=== PATIENT | female | born 1980 | race Caucasian/White ===

== ENCOUNTER → 2016-10-27 | Outpatient (CLI) | payer OTHER ==
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
== END | disposition home or self-care (01) ==
LOC: RADCTMAIN 16:04
PROVIDERS: ATTEND Emergency Medicine
DX: S00.83XA Contusion of other part of head, initial encounter (principal)
CPT/HCPCS: 70450; 70486

== ENCOUNTER → 2016-11-09 | Outpatient (CLI) | payer OTHER ==
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
== END | disposition home or self-care (01) ==
LOC: RADCTMAIN 10:44
PROVIDERS: ATTEND Emergency Medicine
DX: S00.83XA Contusion of other part of head, initial encounter (principal)
CPT/HCPCS: 70450

== ENCOUNTER → 2017-03-11 | Outpatient (CLI) | payer BC ==
[2017-03-11 14:51] LABS: Basophils % (A) 1 %; CH 29.4; Eosinophils % (A) 1 %; HGB 13.3 gm/dL (11.4-16.0); Luc # (Auto) 0.12; Luc % (Auto) 3; Lymphocytes # (A) 1.4 k/uL (1.0-4.8); Lymphocytes % (A) 29 %; MCH 29.6 pg (25.0-35.0); MCHC 33.2 g/dL (31.0-37.0); MCV 89.4 fL (80.0-100.0); Mean Platelet Volume 8.1; Monocytes # (A) 0.3 k/uL (0-1.0); Monocytes % (A) 6 %; Neutrophils # (A) 3.1 k/uL (1.3-7.7); Neutrophils % (A) 61 %; RBC 4.47 m/uL (3.80-5.40); WBC (Perox) 4.92
== END | disposition home or self-care (01) ==
LOC: LABWHC1 14:02
PROVIDERS: ATTEND Obstetrics & Gynecology
DX: Z01.812 Encounter for preprocedural laboratory examination (principal)
CPT/HCPCS: 36415; 85025

== ENCOUNTER 2017-03-22 05:50 | Day surgery (SDC) | payer BC, OTHER ==
[2017-03-14 15:54] VITALS: BMI 19.2
--- NOTE | 2017-03-21 07:33 | P.HPOB ---
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 Most recently patient had a colposcopy done that showed MESFIN-1 of the ectocervix however her Pap smear did show high-grade changes. And due to this discrepancy going to proceed with LEEP excision of this area. Patient also has an IUD with known retained strings and therefore is going to have IUD removed at this time as well. Review of Systems Constitutional: Denies chills, Denies fever Cardiovascular: Denies chest pain, Denies shortness of breath Respiratory: Denies cough Gastrointestinal: Denies abdominal pain, Denies diarrhea, Denies nausea, Denies vomiting Genitourinary: Reports as per HPI Menstruation: Reports period normal Past Medical History Additional Past Medical History / Comment(s): HX migraine, kidney stones History of Any Multi-Drug Resistant Organisms: None Reported Past Surgical History: Adenoidectomy, Ear Surgery Additional Past Surgical History / Comment(s): d&c, HAS HAD TUBES IN EARS X4 Past Anesthesia/Blood Transfusion Reactions: No Reported Reaction Past Psychological History: No Psychological Hx Reported Smoking Status: Never smoker Past Alcohol Use History: None Reported Past Drug Use History: None Reported - Past Family History Mother Family Medical History: No Reported History Medications and Allergies Allergies Allergy/AdvReac Type Severity Reaction Status Date / Time No Known Allergies Allergy Verified 03/14/17 15:51 Exam - OBG Physical Exam Abdomen: bowel sounds normal, no diffuse tenderness, no bruit present, no guarding noted, no hepatomegaly, no splenomegaly, no mass Vulva: both: normal Vagina: normal moisture, no discharge Cervix: no lesion, no discharge Uterus: normal size, normal contour Adnexa: both: normal Results Colposcopy performed on January 18 showed MESFIN-1 of the ectocervix with negative endocervical curettings. 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 Patient also has known retention of the IUD strings with IUD in the proper position. Due to the discrepancy of the Pap smear, plan is colposcopy with LEEP excision of the ectocervix and endocervix and IUD removal. Patient does understand the surgery and risks including risks of infection, bleeding, possible cervical incompetence if any future pregnancies. All the patient's questions are answered and a written consent is obtained. Status: Acute (2) IUD strings lost Status: Acute
[~2017-03-22 05:50] MED LIST: DEXAMETHASONE SOD PHOSPHATE 10 MG/ML 1 ML VIAL IV ONE; HYDROmorphone 1 MG/ML 1 ML SYRINGE IVP PRN; LACTATED RINGERS 1,000 ML IV SCH; MIDAZOLAM 2 MG/2 ML VIAL IV PRN; ONDANSETRON 4 MG/2 ML VIAL IVP ONE; Pre Op ABX Message 1 EACH MISC MISCELLANE ONE
[2017-03-22 06:32] VITALS: RESP 16; TEMP 97.8
[2017-03-22] MEDS ORDERED: LIDOCAINE 1% 20 ML VIAL (10MG/ML) FOR IV START INTRADERMA ONE (06:38)
[2017-03-22] MEDS ORDERED: SCOPOLAMINE 1.5MG/72HR PATCH TRANSDERM ONE (07:03)
[2017-03-22] MEDS ORDERED: PROPOFOL 10 MG/ML 20 ML VIAL IV ONE (07:11)
[2017-03-22] MEDS ORDERED: LIDOCAINE 1% INJ 10MG/ML (20 ML MDV) ONE (07:11)
[2017-03-22] MEDS ORDERED: KETOROLAC 30 MG/ML 1 ML VIAL ONE (07:11)
[2017-03-22] MEDS ORDERED: fentaNYL (PF) 50 MCG/ML 2 ML AMP ONE (07:11)
[2017-03-22] MEDS ORDERED: MIDAZOLAM 2 MG/2 ML VIAL ONE (07:11)
[2017-03-22] MEDS ORDERED: IODINE/POTASS IOD (LUGOLS) BTL TOPICAL ONE (07:43)
[2017-03-22] MEDS ORDERED: FERRIC SUBSULFATE (MONSELS) JAR TOPICAL ONE (07:43)
--- NOTE | 2017-03-22 07:45 | P.OP ---
Date of Procedure: 03/22/17 Preoperative Diagnosis: #1: High-grade cervical dysplasia. #2: Retained IUD Postoperative Diagnosis: Same Procedure(s) Performed: #1: Removal of IUD. #2: Colposcopy #3: LEEP excision of the ectocervix and endocervix. Implants: Anesthesia: MAC Surgeon: Elijah Seay Estimated Blood Loss (ml): 15 Urine output (ml): 5 Pathology: other (Ectocervix and endocervix.) Condition: stable Disposition: PACU Indications for Procedure: Please see dictated H&P for intimate details of this patient's admission. Brief summary this is a pleasant 36-year-old 3 para 2 female whose had a discrepant Pap smear showing high-grade dysplasia and a colposcopy showing low -grade changes. Patient also has known lost IUD strings. Patient now presents for LEEP excision of the cervix due to high-grade Pap smear and removal of her IUD. Patient does understand the surgery and risks including risks of infection , bleeding, possible cervical incompetence if she were to become in the future. All the patient's questions were answered written consent is obtained. Operative Findings: This patient had a ParaGard IUD in place. The cervix showed some mild acetowhite changes as demarcated in the office on the ectocervix. Description of Procedure: This patient is taken to the operating room where she is laid in the supine position. She subsequently undergoes general mask anesthesia without incident. With an adequate level of anesthesia she's placed in dorsal lithotomy position. She has a vaginal perineal prep and drape. Examination under anesthesia shows a retroverted uterus of normal size. I first drain the bladder for 5 mL of clear urine. Weighted speculum was placed in the posterior vagina and the Allis clamp was used to grab the anterior lip of the cervix. Using the Halle's I gently probed the endocervix unable to grab the IUD strings and remove the ParaGard IUD intact. With this done the Allis clamp and weighted speculum removed. The laser speculum was then placed in the vagina and the cervix is then visualized. Colposcopy is performed at this time. The large LEEP loop was then used to excise the entire ectocervix with transformation zone. This is done at a 6070 cutting cautery setting. Another pass is made of the small loop of the endocervix. These tissue pieces are sent off separately. Cautery is then used to assure hemostasis of the endocervical and ectocervical bed. The ectocervical margin is cauterized as well. With this completed Monsel solution is placed for added hemostasis. Excellent hemostasis is noted. This done the procedure is then terminated. The speculum is removed. All counts are correct 3. Patient is awakened from anesthesia and taken recovery room satisfactory condition. There are no complications.
[2017-03-22] MEDS ORDERED: LACTATED RINGERS 1,000 ML IV ONE (08:00)
[2017-03-22 09:30] VITALS: BP 104/69; PULSE 58
== END 2017-03-22 10:24 | disposition home or self-care (01) ==
LOC: OR 05:50
PROVIDERS: ATTEND Obstetrics & Gynecology
DX: R87.613 High grade squamous intraepithelial lesion on cytologic smear of cervix (HGSIL) (principal); N87.1 Moderate cervical dysplasia; Z30.432 Encounter for removal of intrauterine contraceptive device; Z79.899 Other long term (current) drug therapy
CPT/HCPCS: 58301; 57460; 81025; 88305; 88307; J2250; J2405; J2001; J3010; J1885; J1170; J2704

== ENCOUNTER 2018-05-23 08:20 | Emergency (ER) | payer BC ==
[2018-05-23 08:31] VITALS: RESP 18
[2018-05-23] MEDS ORDERED: SODIUM CHLORIDE 0.9% 500 ML 500 ML IV STA (08:41)
[2018-05-23] MEDS ORDERED: KETOROLAC 30 MG/ML 1 ML VIAL IVP STA (08:41)
[2018-05-23] MEDS ORDERED: SODIUM CHLORIDE 0.9% 1,000 ML IV STA (08:41)
--- NOTE | 2018-05-23 08:45 | ED ---
Abdominal Pain HPI - General Chief Complaint: Abdominal Pain Stated Complaint: Abdominal pain Time Seen by Provider: 05/23/18 08:35 Source: patient, RN notes reviewed Mode of arrival: wheelchair Limitations: no limitations - History of Present Illness Initial Comments: This is a 37-year-old female who presents the onset of severe 10/10 achy mid upper abdominal pain at about 7:40 AM this morning she states last night and this morning she got she felt fine this is a sudden onset and currently is about 8 a half/10 severity with some nausea but no overt vomiting fevers chills sweats no dysuria hematuria or vaginal discharges. She does have a history kidney stones which was but states this feels much different. It does get worse with certain movements and deep breathing. It starts she is aware no bad food no exposure to anyone with a similar presentation. No other modifying factors MD Complaint: abdominal pain - Related Data Home Medications Medication Instructions Recorded Confirmed Blisovi Fe 1.5/30 1 tab PO HS 05/23/18 05/23/18 Ibuprofen [Motrin Ib] 400 mg PO Q6H PRN 05/23/18 05/23/18 Previous Rx's Medication Instructions Recorded Dicyclomine [Bentyl] 10 mg PO TID #10 capsule 05/23/18 Allergies Allergy/AdvReac Type Severity Reaction Status Date / Time No Known Allergies Allergy Verified 05/23/18 08:54 Review of Systems ROS Statement: Those systems with pertinent positive or pertinent negative responses have been documented in the HPI. ROS Other: All systems not noted in ROS Statement are negative. Past Medical History Additional Past Medical History / Comment(s): migraine History of Any Multi-Drug Resistant Organisms: None Reported Past Surgical History: Ear Surgery Additional Past Surgical History / Comment(s): d&c colonoscopy Past Anesthesia/Blood Transfusion Reactions: No Reported Reaction Past Psychological History: No Psychological Hx Reported Smoking Status: Never smoker Past Alcohol Use History: Occasional Past Drug Use History: Marijuana - Past Family History Mother Family Medical History: No Reported History General Exam - General Exam Comments Initial Comments: This is a well-developed well-nourished awake alert oriented 3 female Limitations: no limitations General appearance: alert, anxious, in distress Head exam: Present: atraumatic, normocephalic, normal inspection Eye exam: Present: normal appearance, PERRL, EOMI. Absent: scleral icterus, conjunctival injection, periorbital swelling ENT exam: Present: normal exam, mucous membranes moist Neck exam: Present: normal inspection. Absent: tenderness, meningismus, lymphadenopathy Respiratory exam: Present: normal lung sounds bilaterally. Absent: respiratory distress, wheezes, rales, rhonchi, stridor Cardiovascular Exam: Present: regular rate, normal rhythm, normal heart sounds. Absent: systolic murmur, diastolic murmur, rubs, gallop, clicks GI/Abdominal exam: Present: soft, tenderness (Some epigastric and left upper quadrant tenderness palpation no guarding rebound masses or bruits), normal bowel sounds. Absent: distended, guarding, rebound, rigid Rectal exam: Present: deferred Extremities exam: Present: normal inspection, full ROM, normal capillary refill. Absent: tenderness, pedal edema, joint swelling, calf tenderness Back exam: Present: normal inspection Neurological exam: Present: alert, oriented X3, CN II-XII intact Psychiatric exam: Present: normal affect, normal mood Skin exam: Present: warm, dry, intact, normal color. Absent: rash Course Vital Signs 05/23/18 08:29 Temperature 98.2 F Pulse Rate 75 Respiratory 18 Rate Blood Pressure 133/83 O2 Sat by Pulse 100 Oximetry Medical Decision Making - Medical Decision Making Patient is currently pain-free I did discuss the findings with her and her was present. The presentation consistent with spastic colon patient does have a small amount of blood in the urine this may represent either her period beginning to start or the kidney stone on the left which she is aware of. The symptoms are not consistent with her prior episodes of kidney stones however - Lab Data Result diagrams: 05/23/18 09:00 05/23/18 09:00 Lab Results 05/23/18 05/23/18 05/23/18 Range/Units 08:51 08:51 09:00 WBC (3.8-10.6) k/uL RBC (3.80-5.40) m/uL Hgb (11.4-16.0) gm/dL Hct (34.0-46.0) % MCV (80.0-100.0) fL MCH (25.0-35.0) pg MCHC (31.0-37.0) g/dL RDW (11.5-15.5) % Plt Count (150-450) k/uL Neutrophils % % Lymphocytes % % Monocytes % % Eosinophils % % Basophils % % Neutrophils # (1.3-7.7) k/uL Lymphocytes # (1.0-4.8) k/uL Monocytes # (0-1.0) k/uL Eosinophils # (0-0.7) k/uL Basophils # (0-0.2) k/uL Sodium 138 (137-145) mmol/L Potassium 4.2 (3.5-5.1) mmol/L Chloride 111 H (98-107) mmol/L Carbon Dioxide 18 L (22-30) mmol/L Anion Gap 9 mmol/L BUN 14 (7-17) mg/dL Creatinine 0.80 (0.52-1.04) mg/dL Est GFR (CKD-EPI)AfAm >90 (>60 ml/min/1.73 sqM) Est GFR (CKD-EPI)NonAf >90 (>60 ml/min/1.73 sqM) Glucose 95 (74-99) mg/dL Calcium 9.0 (8.4-10.2) mg/dL Magnesium 1.7 (1.6-2.3) mg/dL Total Bilirubin 0.3 (0.2-1.3) mg/dL AST 14 (14-36) U/L ALT 15 (9-52) U/L Alkaline Phosphatase 30 L (38-126) U/L Total Creatine Kinase (30-135) U/L CK-MB (CK-2) (0.0-2.4) ng/mL CK-MB (CK-2) Rel Index Troponin I (0.000-0.034) ng/mL Total Protein 7.0 (6.3-8.2) g/dL Albumin 4.0 (3.5-5.0) g/dL Amylase 95 (30-110) U/L Lipase 211 (23-300) U/L Urine Color Yellow Urine Appearance Clear (Clear) Urine pH 6.5 (5.0-8.0) Ur Specific [place] 1.021 (1.001-1.035) Urine Protein Negative (Negative) Urine Glucose (UA) Negative (Negative) Urine Ketones Negative (Negative) Urine Blood Moderate H (Negative) Urine Nitrite Negative (Negative) Urine Bilirubin Negative (Negative) Urine Urobilinogen <2.0 (<2.0) mg/dL Ur Leukocyte Esterase Negative (Negative) Urine RBC 18 H (0-5) /hpf Urine WBC 1 (0-5) /hpf Ur Squamous Epith Cells 5 H (0-4) /hpf Urine Mucus Occasional H (None) /hpf Urine HCG, Qual Not Detected (Not Detectd) 05/23/18 05/23/18 Range/Units 09:00 09:00 WBC 5.6 (3.8-10.6) k/uL RBC 4.68 (3.80-5.40) m/uL Hgb 13.9 (11.4-16.0) gm/dL Hct 41.2 (34.0-46.0) % MCV 88.2 (80.0-100.0) fL MCH 29.6 (25.0-35.0) pg MCHC 33.6 (31.0-37.0) g/dL RDW 12.9 (11.5-15.5) % Plt Count 278 (150-450) k/uL Neutrophils % 63 % Lymphocytes % 25 % Monocytes % 6 % Eosinophils % 2 % Basophils % 1 % Neutrophils # 3.5 (1.3-7.7) k/uL Lymphocytes # 1.4 (1.0-4.8) k/uL Monocytes # 0.4 (0-1.0) k/uL Eosinophils # 0.1 (0-0.7) k/uL Basophils # 0.1 (0-0.2) k/uL Sodium (137-145) mmol/L Potassium (3.5-5.1) mmol/L Chloride (98-107) mmol/L Carbon Dioxide (22-30) mmol/L Anion Gap mmol/L BUN (7-17) mg/dL Creatinine (0.52-1.04) mg/dL Est GFR (CKD-EPI)AfAm (>60 ml/min/1.73 sqM) Est GFR (CKD-EPI)NonAf (>60 ml/min/1.73 sqM) Glucose (74-99) mg/dL Calcium (8.4-10.2) mg/dL Magnesium (1.6-2.3) mg/dL Total Bilirubin (0.2-1.3) mg/dL AST (14-36) U/L ALT (9-52) U/L Alkaline Phosphatase (38-126) U/L Total Creatine Kinase 42 (30-135) U/L CK-MB (CK-2) 0.5 (0.0-2.4) ng/mL CK-MB (CK-2) Rel Index 1.2 Troponin I <0.012 (0.000-0.034) ng/mL Total Protein (6.3-8.2) g/dL Albumin (3.5-5.0) g/dL Amylase (30-110) U/L Lipase (23-300) U/L Urine Color Urine Appearance (Clear) Urine pH (5.0-8.0) Ur Specific [place] (1.001-1.035) Urine Protein (Negative) Urine Glucose (UA) (Negative) Urine Ketones (Negative) Urine Blood (Negative) Urine Nitrite (Negative) Urine Bilirubin (Negative) Urine Urobilinogen (<2.0) mg/dL Ur Leukocyte Esterase (Negative) Urine RBC (0-5) /hpf Urine WBC (0-5) /hpf Ur Squamous Epith Cells (0-4) /hpf Urine Mucus (None) /hpf Urine HCG, Qual (Not Detectd) - EKG Data -: EKG Interpreted by [facility] EKG shows normal: sinus rhythm, axis, intervals, QRS complexes, ST-T waves ( Normal sinus rhythm a 76. Interval 164 QRS 82 QT since QTC 384/[address]- T wave changes) Rate: normal - Radiology Data Radiology results: report reviewed (I did review the imaging and report no acute findings or is evidence of a kidney stone in the left), image reviewed Disposition Clinical Impression: Abdominal pain, Spastic colon Disposition: HOME SELF-CARE Condition: Good Instructions: Abdominal Pain (ED), Irritable Bowel Syndrome (ED) Prescriptions: Dicyclomine [Bentyl] 10 mg PO TID #10 capsule Is patient prescribed a controlled substance at d/c from ED?: No Referrals: Murphy Wellington DO [Primary Care Provider] - 1-2 days
[2018-05-23 09:07] LABS: Appearance,Urine Clear (Clear); Bilirubin,Urine Negative (Negative); Blood,Urine Moderate (Negative); Color,Urine Yellow; Glucose,Urine (UA) Negative (Negative); Ketones,Urine Negative (Negative); Leukocyte Esterase,Urine Negative (Negative); Mucus,Urine Occasional /hpf; Nitrite,Urine Negative (Negative); PH, Urine 6.5 (5.0-8.0); Protein,Urine Negative (Negative); RBC,Urine 18 /hpf (0-5); Specific Gravity,Urine 1.021 (1.001-1.035); Squamous Epithelial Cell,Urine 5 /hpf (0-4); Urobilinogen,Urine <2.0 mg/dL (<2.0); WBC,Urine 1 /hpf (0-5)
[2018-05-23 09:16] LABS: Basophils # (A) 0.1 k/uL (0-0.2); Basophils % (A) 1 %; Eosinophils # (A) 0.1 k/uL (0-0.7); Eosinophils % (A) 2 %; HCT 41.2 % (34.0-46.0); HGB 13.9 gm/dL (11.4-16.0); Lymphocytes # (A) 1.4 k/uL (1.0-4.8); Lymphocytes % (A) 25 %; MCH 29.6 pg (25.0-35.0); MCHC 33.6 g/dL (31.0-37.0); MCV 88.2 fL (80.0-100.0); Mean Platelet Volume 7.2; Monocytes # (A) 0.4 k/uL (0-1.0); Monocytes % (A) 6 %; Neutrophils # (A) 3.5 k/uL (1.3-7.7); Neutrophils % (A) 63 %; Platelet Count 278 k/uL (150-450); RBC 4.68 m/uL (3.80-5.40); RDW 12.9 % (11.5-15.5); WBC 5.6 k/uL (3.8-10.6)
[2018-05-23 09:38] LABS: Creatine Kinase 42 U/L (30-135)
[2018-05-23 09:40] LABS: ALT 15 U/L (9-52); AST 14 U/L (14-36); Alkaline Phosphatase 30 U/L (38-126); Amylase 95 U/L (30-110); Anion Gap 9 mmol/L; Blood Urea Nitrogen 14 mg/dL (7-17); Carbon Dioxide 18 mmol/L (22-30); Chloride 111 mmol/L (98-107); Glucose 95 mg/dL (74-99); Lipase 211 U/L (23-300); Magnesium 1.7 mg/dL (1.6-2.3); Potassium 4.2 mmol/L (3.5-5.1); Sodium 138 mmol/L (137-145); Total Bilirubin 0.3 mg/dL (0.2-1.3)
--- NOTE | 2018-05-23 09:44 | XR ---
Abdomen HISTORY: Left-sided abdomen pain Frontal view of the abdomen on 2 images No comparisons There is a calcification superimposed over the left kidney measuring approximately 2 to 3 mm. Indeter minate calcification within the left hemipelvis is noted. Lung bases are clear. There is no evident b owel obstruction or pneumoperitoneum. IMPRESSION: Left-sided nephrolithiasis. Additional findings above.
[2018-05-23] MEDS ORDERED: DICYCLOMINE 20 MG TAB PO STA (09:49)
[2018-05-23 09:51] LABS: Creatine Kinase MB 0.5 ng/mL (0.0-2.4); Troponin I <0.012 ng/mL (0.000-0.034)
[2018-05-23 11:20] VITALS: BP 112/72; PULSE 61; TEMP 97.1
== END 2018-05-23 11:19 | disposition home or self-care (01) ==
LOC: EC 08:20
DX: K58.9 Irritable bowel syndrome, unspecified (principal); Z87.442 Personal history of urinary calculi
CPT/HCPCS: 99284; 96374; 96361 ×2; 36415; 93005; 80053; 82150; 82550; 82553; 83690; 83735; 84484; 85025; 81001; 81025; 74018; J1885

== ENCOUNTER 2019-10-21 07:30 | Emergency (ER) | payer BC ==
[2019-10-21 07:41] VITALS: PULSE 87; TEMP 97.2
[2019-10-21] MEDS ORDERED: SODIUM CHLORIDE 0.9% 1,000 ML IV ONE (08:02)
[2019-10-21] MEDS ORDERED: DICYCLOMINE 10 MG/ML 2 ML AMP IM STA (08:04)
--- NOTE | 2019-10-21 08:06 | ED ---
General Adult HPI - General Chief complaint: GI Bleed Stated complaint: Abd Pain,Blood in Stool Time Seen by Provider: 10/21/19 07:40 Source: patient, RN notes reviewed, old records reviewed Mode of arrival: ambulatory Limitations: no limitations - History of Present Illness Initial comments: This is a 38-year-old female who presents emergency department complaining that she has had bright red blood per rectum. Patient states last night about 9:30 she had diarrhea with a very scant amount of blood in it. Patient states since then she's had 2 bowel movements both of which been all blood. Patient states she has some abdominal cramping. Patient denies any rectal or anal pain. Patient denies any colonoscopy in the past. Patient denies any similar symptoms. Patient denies any recent fever or chills. Patient states aside from the one episode of diarrhea she has had no other problems or diarrhea. Patient states her been diagnosed with any inflammatory bowel disease. Patient denies any abdominal surgeries. - Related Data Home Medications Medication Instructions Recorded Confirmed Blisovi Fe 1.5 1 tab PO HS 05/23/18 05/23/18 Ibuprofen [Motrin Ib] 400 mg PO Q6H PRN 05/23/18 05/23/18 Previous Rx's Medication Instructions Recorded Dicyclomine [Bentyl] 10 mg PO TID #10 capsule 05/23/18 Allergies Allergy/AdvReac Type Severity Reaction Status Date / Time No Known Allergies Allergy Verified 10/21/19 07:41 Review of Systems ROS Statement: Those systems with pertinent positive or pertinent negative responses have been documented in the HPI. ROS Other: All systems not noted in ROS Statement are negative. Past Medical History Additional Past Medical History / Comment(s): migraine History of Any Multi-Drug Resistant Organisms: None Reported Past Surgical History: Ear Surgery Additional Past Surgical History / Comment(s): d&c colonoscopy Past Anesthesia/Blood Transfusion Reactions: No Reported Reaction Past Psychological History: No Psychological Hx Reported Smoking Status: Never smoker Past Alcohol Use History: Occasional Past Drug Use History: Marijuana - Past Family History Mother Family Medical History: No Reported History General Exam - General Exam Comments Initial Comments: GENERAL: Patient is well-developed and well-nourished. Patient is nontoxic and well- hydrated and is in mild distress. ENT: Neck is soft and supple. No significant lymphadenopathy is noted. Oropharynx is clear. Moist mucous membranes. Neck has full range of motion without eliciting any pain. EYES: The sclera were anicteric and conjunctiva were pink and moist. Extraocular movements were intact and pupils were equal round and reactive to light. Eyelids were unremarkable. PULMONARY: Unlabored respirations. Good breath sounds bilaterally. No audible rales rhonchi or wheezing was noted. CARDIOVASCULAR: There is a regular rate and rhythm without any murmurs gallops or rubs. ABDOMEN: Soft and nontender with normal bowel sounds. SKIN: Skin is clear with no lesions or rashes and otherwise unremarkable. NEUROLOGIC: Patient is alert and oriented x3. Cranial nerves II through XII are grossly intact. Motor and sensory are also intact. Normal speech, volume and content. Symmetrical smile. MUSCULOSKELETAL: Normal extremities with adequate strength and full range of motion. No lower extremity swelling or edema. No calf tenderness. LYMPHATICS: No significant lymphadenopathy is noted PSYCHIATRIC: Normal psychiatric evaluation. Limitations: no limitations Course Vital Signs 10/21/19 07:38 Temperature 97.2 F L Pulse Rate 87 Respiratory 20 Rate Blood Pressure 122/57 O2 Sat by Pulse 98 Oximetry Medical Decision Making - Medical Decision Making Patient's hemoglobin is normal. Patient had another bowel movement in the emergency department but the amount of blood was less. Patient states her cramping is completely gone. Patient states she is capable and willing to follow up as an outpatient. - Lab Data Result diagrams: 10/21/19 08:09 10/21/19 08:09 Lab Results 10/21/19 10/21/19 10/21/19 Range/Units 08:09 08:09 08:09 WBC 8.3 (3.8-10.6) k/uL RBC 4.69 (3.80-5.40) m/uL Hgb 14.1 (11.4-16.0) gm/dL Hct 41.9 (34.0-46.0) % MCV 89.4 (80.0-100.0) fL MCH 30.1 (25.0-35.0) pg MCHC 33.7 (31.0-37.0) g/dL RDW 12.7 (11.5-15.5) % Plt Count 294 (150-450) k/uL Neutrophils % 74 % Lymphocytes % 17 % Monocytes % 5 % Eosinophils % 1 % Basophils % 1 % Neutrophils # 6.2 (1.3-7.7) k/uL Lymphocytes # 1.4 (1.0-4.8) k/uL Monocytes # 0.4 (0-1.0) k/uL Eosinophils # 0.1 (0-0.7) k/uL Basophils # 0.1 (0-0.2) k/uL PT 10.2 (9.0-12.0) sec INR 1.0 (<1.2) APTT 24.8 (22.0-30.0) sec Sodium (137-145) mmol/L Potassium (3.5-5.1) mmol/L Chloride (98-107) mmol/L Carbon Dioxide (22-30) mmol/L Anion Gap mmol/L BUN (7-17) mg/dL Creatinine (0.52-1.04) mg/dL Est GFR (CKD-EPI)AfAm (>60 ml/min/1.73 sqM) Est GFR (CKD-EPI)NonAf (>60 ml/min/1.73 sqM) Glucose (74-99) mg/dL Calcium (8.4-10.2) mg/dL Total Bilirubin (0.2-1.3) mg/dL AST (14-36) U/L ALT (4-34) U/L Alkaline Phosphatase (38-126) U/L Total Protein (6.3-8.2) g/dL Albumin (3.5-5.0) g/dL Blood Type A Positive Blood Type Recheck A Pos Bld Type Recheck Status No Antibody Screen NEGATIVE Spec Expiration Date 10/24/2019230810/21/19 Range/Units 08:09 WBC (3.8-10.6) k/uL RBC (3.80-5.40) m/uL Hgb (11.4-16.0) gm/dL Hct (34.0-46.0) % MCV (80.0-100.0) fL MCH (25.0-35.0) pg MCHC (31.0-37.0) g/dL RDW (11.5-15.5) % Plt Count (150-450) k/uL Neutrophils % % Lymphocytes % % Monocytes % % Eosinophils % % Basophils % % Neutrophils # (1.3-7.7) k/uL Lymphocytes # (1.0-4.8) k/uL Monocytes # (0-1.0) k/uL Eosinophils # (0-0.7) k/uL Basophils # (0-0.2) k/uL PT (9.0-12.0) sec INR (<1.2) APTT (22.0-30.0) sec Sodium 138 (137-145) mmol/L Potassium 4.3 (3.5-5.1) mmol/L Chloride 108 H (98-107) mmol/L Carbon Dioxide 21 L (22-30) mmol/L Anion Gap 9 mmol/L BUN 20 H (7-17) mg/dL Creatinine 0.90 (0.52-1.04) mg/dL Est GFR (CKD-EPI)AfAm >90 (>60 ml/min/1.73 sqM) Est GFR (CKD-EPI)NonAf 82 (>60 ml/min/1.73 sqM) Glucose 90 (74-99) mg/dL Calcium 9.2 (8.4-10.2) mg/dL Total Bilirubin 0.6 (0.2-1.3) mg/dL AST 22 (14-36) U/L ALT 11 (4-34) U/L Alkaline Phosphatase 43 (38-126) U/L Total Protein 7.2 (6.3-8.2) g/dL Albumin 4.1 (3.5-5.0) g/dL Blood Type Blood Type Recheck Bld Type Recheck Status Antibody Screen Spec Expiration Date Disposition Clinical Impression: Gastrointestinal hemorrhage Disposition: HOME SELF-CARE Condition: Good Instructions (If sedation given, give patient instructions): Gastrointestinal Bleeding (ED) Additional Instructions: Patient should follow-up as soon as possible for colonoscopy. Patient should return to the emergency department the bleeding is heavier because any shortness of breath or dizziness. Is patient prescribed a controlled substance at d/c from ED?: No Referrals: Murphy Wellington DO [Primary Care Provider] - 1-2 days Time of Disposition: 09:16
[2019-10-21 08:30] LABS: Basophils # (A) 0.1 k/uL (0-0.2); Basophils % (A) 1 %; Eosinophils # (A) 0.1 k/uL (0-0.7); Eosinophils % (A) 1 %; HCT 41.9 % (34.0-46.0); HGB 14.1 gm/dL (11.4-16.0); Lymphocytes # (A) 1.4 k/uL (1.0-4.8); Lymphocytes % (A) 17 %; MCH 30.1 pg (25.0-35.0); MCHC 33.7 g/dL (31.0-37.0); MCV 89.4 fL (80.0-100.0); Mean Platelet Volume 7.4; Monocytes # (A) 0.4 k/uL (0-1.0); Monocytes % (A) 5 %; Neutrophils # (A) 6.2 k/uL (1.3-7.7); Neutrophils % (A) 74 %; Platelet Count 294 k/uL (150-450); RBC 4.69 m/uL (3.80-5.40); RDW 12.7 % (11.5-15.5); WBC 8.3 k/uL (3.8-10.6)
[2019-10-21 08:32] LABS: Partial Thromboplastin Time 24.8 sec (22.0-30.0); Prothrombin Time 10.2 sec (9.0-12.0)
[2019-10-21 08:36] LABS: ALT 11 U/L (4-34); AST 22 U/L (14-36); African American GFR (CKD) >90 (>60 ml/min/1.73 sqM); Albumin 4.1 g/dL (3.5-5.0); Alkaline Phosphatase 43 U/L (38-126); Anion Gap 9 mmol/L; Blood Urea Nitrogen 20 mg/dL (7-17); Calcium 9.2 mg/dL (8.4-10.2); Carbon Dioxide 21 mmol/L (22-30); Chloride 108 mmol/L (98-107); Glucose 90 mg/dL (74-99); Non-African American GFR(CKD) 82 (>60 ml/min/1.73 sqM); Potassium 4.3 mmol/L (3.5-5.1); Sodium 138 mmol/L (137-145); Total Bilirubin 0.6 mg/dL (0.2-1.3); Total Protein 7.2 g/dL (6.3-8.2)
[2019-10-21 09:25] VITALS: BP 120/78; RESP 18
== END 2019-10-21 09:20 | disposition home or self-care (01) ==
LOC: EC 07:30
DX: K92.2 Gastrointestinal hemorrhage, unspecified (principal); Z79.899 Other long term (current) drug therapy
CPT/HCPCS: 36415; 86900; 86901; 80053; 85025; 85610; 85730; 86850; 99285; 96360; 96372; J0500

== ENCOUNTER → 2019-10-30 | Outpatient (CLI) | payer BC ==
--- NOTE | 2019-10-30 10:12 | MM ---
Reason for exam: screening (asymptomatic). Last mammogram was performed 9 years and 5 months ago. History: Family history of breast cancer in maternal aunt. Took hormonal contraceptives for 2 years 6 months beginning at age 27. Physical Findings: A clinical breast exam by your physician is recommended on an annual basis and results should be correlated with mammographic findings. MG Screening Mammo w CAD Bilateral CC and MLO view(s) were taken. Prior study comparison: June 04, 2010, bilateral diagnostic digital mammog. The breast tissue is extremely dense which could obscure a lesion on mammography. There is no discrete abnormality. ASSESSMENT: Negative, BI-RAD 1 RECOMMENDATION: Routine screening mammogram of both breasts at age 40.
== END | disposition home or self-care (01) ==
LOC: RADMAMWWP 06:51
PROVIDERS: ATTEND Obstetrics & Gynecology
DX: Z12.31 Encounter for screening mammogram for malignant neoplasm of breast (principal)
CPT/HCPCS: 77067

== ENCOUNTER → 2020-06-10 | Outpatient (CLI) | payer BC ==
--- NOTE | 2020-06-10 18:29 | XR ---
EXAMINATION TYPE: XR abdomen 2V DATE OF EXAM: 06/10/2020 11:21 AM CLINICAL HISTORY: Bilateral flank pain, hematuria. History of kidney stones. TECHNIQUE: Supine and upright images of the abdomen and pelvis were obtained COMPARISON: 05/23/2018 KUB. FINDINGS: 3 mm calcification overlying the left renal shadow unchanged versus 05/23/2018 comparison. 3 mm calcification over the left hemipelvis is indeterminate. Nonspecific bowel gas pattern. Lung base s are clear. The osseous structures are intact. IMPRESSION: 1. 3 mm left nephrolithiasis unchanged versus 2018 comparison. 2. 3 mm calcification over the left hemipelvis is indeterminate.
== END | disposition home or self-care (01) ==
LOC: RADXRMAIN 10:15
PROVIDERS: ATTEND Nurse Practitioner Family
DX: R10.9 Unspecified abdominal pain (principal); R31.9 Hematuria, unspecified
CPT/HCPCS: 74019

== ENCOUNTER → 2020-12-16 | Outpatient (CLI) | payer BC ==
--- NOTE | 2020-12-16 11:16 | XR ---
EXAMINATION TYPE: XR KUB DATE OF EXAM: 12/16/2020 COMPARISON: 05/23/2018 INDICATION: Renal calculi TECHNIQUE: Single view abdomen frontal projection FINDINGS: There is a nonspecific bowel gas pattern. Psoas margins are normal. No organomegaly is present. There is a 0.4 cm calcification in the mid inferior pole left kidney. This was present previously. There is a 0.3 cm calcification in the inferior left hemipelvis not identified previously. This could be a distal left ureteral stone or phlebolith. IMPRESSION: 1. Stable calcification mid inferior left kidney. 2. New calcification left hemipelvis may be a phlebolith or distal ureteral stone.
== END | disposition home or self-care (01) ==
LOC: RADXRMAIN 10:40
PROVIDERS: ATTEND Urology
DX: N28.89 Other specified disorders of kidney and ureter (principal)
CPT/HCPCS: 74018

== ENCOUNTER → 2020-12-25 | Outpatient (CLI) | payer BC ==
--- NOTE | 2020-12-25 15:01 | CT ---
EXAMINATION TYPE: CT abdomen pelvis wo con DATE OF EXAM: 12/25/2020 COMPARISON: None HISTORY: Rt flank pain CT DLP: 651 mGycm Automated exposure control for dose reduction was used. Images obtained from the diaphragm to the floor the pelvis without contrast. Lung bases are clear. There is no pleural effusion. Heart size is normal. There is no pericardial eff usion. Liver spleen stomach pancreas gallbladder appear intact. Bile ducts are not dilated. There is no adrenal mass. Kidneys have normal size. There is probably 1.5 cm cortical cyst anterior l eft kidney. There is 6 mm focus lower pole left kidney. Ureters are not dilated. There is no hydronep hrosis. There is no retroperitoneal adenopathy. There is no inguinal hernia. Bladder distends smoothl y. Bladder is almost empty. Uterus is anteverted. I see no pelvic mass. There is no free fluid in the pelvis. There is L5 spondylolysis with a a few millimeter L5-S1 spondylolisthesis. The hip joints are intact. There is no mesenteric edema. There is no ascites or free air. There is no bowel obstruction. Appendi x is posterior and appears normal. IMPRESSION: Nonobstructing left renal calculus. No evidence of right side renal stone or obstruction. Normal appe ndix.
== END | disposition home or self-care (01) ==
LOC: RADCTMAIN 09:07
PROVIDERS: ATTEND Urology
DX: N20.0 Calculus of kidney (principal)
CPT/HCPCS: 74176

== ENCOUNTER → 2020-12-25 | Outpatient (CLI) | payer BC ==
--- NOTE | 2020-12-26 13:18 | MM ---
Reason for exam: screening (asymptomatic). Last mammogram was performed 1 year and 2 months ago. History: Family history of breast cancer in maternal aunt. Took hormonal contraceptives for 12 years 6 months beginning at age 27. Physical Findings: A clinical breast exam by your physician is recommended on an annual basis and results should be correlated with mammographic findings. MG 3D Screening Mammo W/Cad Bilateral CC, MLO, and XCCL view(s) were taken. Prior study comparison: October 30, 2019, bilateral MG screening mammo w CAD. June 04, 2010, bilateral diagnostic digital mammog. The breast tissue is extremely dense which could obscure a lesion on mammography. There is no discrete abnormality. No significant changes when compared with prior studies. ASSESSMENT: Negative, BI-RAD 1 RECOMMENDATION: Routine screening mammogram of both breasts in 1 year.
== END | disposition home or self-care (01) ==
LOC: RADMAMWWP 09:20
PROVIDERS: ATTEND Obstetrics & Gynecology
DX: Z12.31 Encounter for screening mammogram for malignant neoplasm of breast (principal); Z80.3 Family history of malignant neoplasm of breast
CPT/HCPCS: 77063; 77067

== ENCOUNTER 2022-05-21 07:34 | Emergency (ER) | payer BC ==
[2022-05-21 07:39] VITALS: RESP 20; TEMP 98.2
--- NOTE | 2022-05-21 08:02 | ED ---
General Adult HPI - General Chief complaint: Chest Pain Stated complaint: Chest pain Time Seen by Provider: 05/21/22 07:40 Source: patient, RN notes reviewed, old records reviewed Mode of arrival: ambulatory Limitations: no limitations - History of Present Illness Initial comments: This 41-year-old female presents emergency with past medical history significant for anxiety and she states she has been feeling more anxious over the last month. Patient states over the last few weeks she's been waking up with some chest pressure and it feels like she worked out even though she hasn't. Patient states today was a little more significant she rated it about a 6/10 so she decided come to the emergency department to be worked up. Patient denies shortness of breath. Patient denies any radiation of the pain. Patient denies any diaphoretic episodes. Patient states any nausea. Patient denies any recent fever chills or cough. Patient denies any lightheadedness dizziness. Patient denies any swelling to her legs or calf tenderness. Patient states she does exercise with her daughter runs about a mile and she never has any chest pressure. Patient denies any blood pressure diabetes or high cholesterol. Patient denies any smoking history. Patient denies any family history of heart disease. Patient is on control. - Related Data Home Medications Medication Instructions Recorded Confirmed Blisovi Fe 1.5 1 tab PO HS 05/23/18 05/23/18 Ibuprofen [Motrin Ib] 400 mg PO Q6H PRN 05/23/18 05/23/18 Previous Rx's Medication Instructions Recorded Dicyclomine [Bentyl] 10 mg PO TID #10 capsule 05/23/18 Allergies Allergy/AdvReac Type Severity Reaction Status Date / Time No Known Allergies Allergy Verified 05/21/22 07:39 Review of Systems ROS Statement: Those systems with pertinent positive or pertinent negative responses have been documented in the HPI. ROS Other: All systems not noted in ROS Statement are negative. Past Medical History Additional Past Medical History / Comment(s): migraine History of Any Multi-Drug Resistant Organisms: None Reported Past Surgical History: Ear Surgery Additional Past Surgical History / Comment(s): d&c colonoscopy Past Anesthesia/Blood Transfusion Reactions: No Reported Reaction Past Psychological History: No Psychological Hx Reported Smoking Status: Never smoker Past Alcohol Use History: Occasional Past Drug Use History: Marijuana - Past Family History Mother Family Medical History: No Reported History General Exam - General Exam Comments Initial Comments: GENERAL: Patient is well-developed and well-nourished. Patient is nontoxic and well-hydrated and is in mild distress. ENT: Neck is soft and supple. No significant lymphadenopathy is noted. Oropharynx is clear. Moist mucous membranes. Neck has full range of motion without eliciting any pain. EYES: The sclera were anicteric and conjunctiva were pink and moist. Extraocular movements were intact and pupils were equal round and reactive to light. Eyelids were unremarkable. PULMONARY: Unlabored respirations. Good breath sounds bilaterally. No audible rales rhonchi or wheezing was noted. CARDIOVASCULAR: There is a regular rate and rhythm without any murmurs gallops or rubs. ABDOMEN: Soft and nontender with normal bowel sounds. SKIN: Skin is clear with no lesions or rashes and otherwise unremarkable. NEUROLOGIC: Patient is alert and oriented x3. Cranial nerves II through XII are grossly intact. Motor and sensory are also intact. Normal speech, volume and content. Symmetrical smile. MUSCULOSKELETAL: Normal extremities with adequate strength and full range of motion. No lower extremity swelling or edema. No calf tenderness. LYMPHATICS: No significant lymphadenopathy is noted PSYCHIATRIC: Normal psychiatric evaluation. 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 Patient's EKG shows no ST segment elevation or depression. Chest x-ray shows no acute abnormality. - Lab Data Result diagrams: 05/21/22 07:55 05/21/22 07:55 Lab Results 05/21/22 05/21/22 05/21/22 Range/Units 07:55 07:55 07:55 WBC 5.7 (3.8-10.6) k/uL RBC 4.28 (3.80-5.40) m/uL Hgb 12.8 (11.4-16.0) gm/dL Hct 38.1 (34.0-46.0) % MCV 89.0 (80.0-100.0) fL MCH 29.9 (25.0-35.0) pg MCHC 33.6 (31.0-37.0) g/dL RDW 12.5 (11.5-15.5) % Plt Count 281 (150-450) k/uL MPV 7.7 Neutrophils % 60 % Lymphocytes % 28 % Monocytes % 7 % Eosinophils % 2 % Basophils % 0 % Neutrophils # 3.4 (1.3-7.7) k/uL Lymphocytes # 1.6 (1.0-4.8) k/uL Monocytes # 0.4 (0-1.0) k/uL Eosinophils # 0.1 (0-0.7) k/uL Basophils # 0.0 (0-0.2) k/uL PT 10.5 (9.0-12.0) sec INR 1.0 (<1.2) APTT 24.1 (22.0-30.0) sec D-Dimer <0.17 (<0.60) mg/L FEU Sodium 137 (137-145) mmol/L Potassium 4.1 (3.5-5.1) mmol/L Chloride 105 (98-107) mmol/L Carbon Dioxide 23 (22-30) mmol/L Anion Gap 9 mmol/L BUN 15 (7-17) mg/dL Creatinine 0.83 (0.52-1.04) mg/dL Est GFR (CKD-EPI)AfAm >90 (>60 ml/min/1.73 sqM) Est GFR (CKD-EPI)NonAf 88 (>60 ml/min/1.73 sqM) Glucose 91 (74-99) mg/dL Calcium 8.8 (8.4-10.2) mg/dL Magnesium 1.9 (1.6-2.3) mg/dL Total Bilirubin 0.5 (0.2-1.3) mg/dL AST 19 (14-36) U/L ALT 14 (4-34) U/L Alkaline Phosphatase 43 (38-126) U/L Troponin I (0.000-0.034) ng/mL Total Protein 6.5 (6.3-8.2) g/dL Albumin 4.0 (3.5-5.0) g/dL 05/21/22 Range/Units 07:55 WBC (3.8-10.6) k/uL RBC (3.80-5.40) m/uL Hgb (11.4-16.0) gm/dL Hct (34.0-46.0) % MCV (80.0-100.0) fL MCH (25.0-35.0) pg MCHC (31.0-37.0) g/dL RDW (11.5-15.5) % Plt Count (150-450) k/uL MPV Neutrophils % % Lymphocytes % % Monocytes % % Eosinophils % % Basophils % % Neutrophils # (1.3-7.7) k/uL Lymphocytes # (1.0-4.8) k/uL Monocytes # (0-1.0) k/uL Eosinophils # (0-0.7) k/uL Basophils # (0-0.2) k/uL PT (9.0-12.0) sec INR (<1.2) APTT (22.0-30.0) sec D-Dimer (<0.60) mg/L FEU Sodium (137-145) mmol/L Potassium (3.5-5.1) mmol/L Chloride (98-107) mmol/L Carbon Dioxide (22-30) mmol/L Anion Gap mmol/L BUN (7-17) mg/dL Creatinine (0.52-1.04) mg/dL Est GFR (CKD-EPI)AfAm (>60 ml/min/1.73 sqM) Est GFR (CKD-EPI)NonAf (>60 ml/min/1.73 sqM) Glucose (74-99) mg/dL Calcium (8.4-10.2) mg/dL Magnesium (1.6-2.3) mg/dL Total Bilirubin (0.2-1.3) mg/dL AST (14-36) U/L ALT (4-34) U/L Alkaline Phosphatase (38-126) U/L Troponin I <0.012 (0.000-0.034) ng/mL Total Protein (6.3-8.2) g/dL Albumin (3.5-5.0) g/dL Disposition Clinical Impression: Atypical chest pain Disposition: HOME SELF-CARE Condition: Good Instructions (If sedation given, give patient instructions): Chest Pain (ED) Is patient prescribed a controlled substance at d/c from ED?: No Referrals: Murphy Wellington DO [Primary Care Provider] - 1-2 days Time of Disposition: 09:01
--- NOTE | 2022-05-21 08:30 | XR ---
EXAMINATION TYPE: XR chest 2V DATE OF EXAM: 05/21/2022 8:10 AM COMPARISON: None TECHNIQUE: XR chest 2V Frontal and lateral views of the chest. CLINICAL INDICATION:Female, 41 years old with history of Chest Pain; FINDINGS: Lungs/Pleura: There is no evidence of pleural effusion, focal consolidation, or pneumothorax. Pulmonary vascularity: Unremarkable. Heart/mediastinum: Cardiomediastinal silhouette is unremarkable. Musculoskeletal: No acute osseous pathology. IMPRESSION: No acute cardiopulmonary disease/process.
[2022-05-21 08:33] LABS: Partial Thromboplastin Time 24.1 sec (22.0-30.0); Prothrombin Time 10.5 sec (9.0-12.0)
[2022-05-21 08:35] LABS: Basophils % (A) 0 %; Eosinophils # (A) 0.1 k/uL (0-0.7); Eosinophils % (A) 2 %; HCT 38.1 % (34.0-46.0); HGB 12.8 gm/dL (11.4-16.0); Lymphocytes # (A) 1.6 k/uL (1.0-4.8); Lymphocytes % (A) 28 %; MCH 29.9 pg (25.0-35.0); MCHC 33.6 g/dL (31.0-37.0); Mean Platelet Volume 7.7; Monocytes # (A) 0.4 k/uL (0-1.0); Monocytes % (A) 7 %; Neutrophils # (A) 3.4 k/uL (1.3-7.7); Neutrophils % (A) 60 %; Platelet Count 281 k/uL (150-450); RBC 4.28 m/uL (3.80-5.40); RDW 12.5 % (11.5-15.5); WBC 5.7 k/uL (3.8-10.6)
[2022-05-21 08:39] LABS: ALT 14 U/L (4-34); AST 19 U/L (14-36); African American GFR (CKD) >90 (>60 ml/min/1.73 sqM); Alkaline Phosphatase 43 U/L (38-126); Anion Gap 9 mmol/L; Blood Urea Nitrogen 15 mg/dL (7-17); Calcium 8.8 mg/dL (8.4-10.2); Carbon Dioxide 23 mmol/L (22-30); Chloride 105 mmol/L (98-107); Glucose 91 mg/dL (74-99); Magnesium 1.9 mg/dL (1.6-2.3); Non-African American GFR(CKD) 88 (>60 ml/min/1.73 sqM); Potassium 4.1 mmol/L (3.5-5.1); Sodium 137 mmol/L (137-145); Total Bilirubin 0.5 mg/dL (0.2-1.3); Total Protein 6.5 g/dL (6.3-8.2)
[2022-05-21 09:39] VITALS: BP 122/66; PULSE 101
== END 2022-05-21 09:25 | disposition home or self-care (01) ==
LOC: EC 07:34
DX: R07.89 Other chest pain (principal)
CPT/HCPCS: 36415; 71046; 80053; 83735; 84484; 85025; 85379; 85610; 85730; 99285

== ENCOUNTER → 2023-10-06 | Outpatient (CLI) | payer BC ==
--- NOTE | 2023-10-07 19:21 | MM ---
Reason for Exam: Screening (asymptomatic). Last mammogram was performed 2 year(s) and 9 month(s) ago. Patient History: Menarche at age 16. First Full-Term at age 25. Hormonal Contraceptives, starting at age 27 for 12 years, 6 months. Maternal aunt had breast cancer. Last menstrual period: 09/15/2023 Risk Values: Tamela 5 year model risk: 0.7%. NCI Lifetime model risk: 10.0%. Prior Study Comparison: 06/04/2010 Bilateral Diagnostic Mammogram, [facility]. 10/30/2019 Bilateral Screening Mammogram, [facility]. 12/25/2020 Bilateral Screening Mammogram, [facility]. Tissue Density: The breast tissue is extremely dense which could obscure a lesion on mammography. Findings: Analyzed By CAD. Asymmetric density posterior inferior left MLO view has increased. Further evaluation is recommended. Otherwise, no significant change. Overall Assessment: Incomplete: need additional imaging evaluation, BI-RAD 0 Management: Special View Mammogram of the left breast. Diagnostic Breast Ultrasound of the left breast. Additional views to include spot 3-D MLO and 3-D lateral views (including far posterior tissue). Targeted left breast ultrasound if any persistent abnormality. [facility] will attempt to contact patient to return for supplemental views and ultrasound if indicated. Electronically signed and approved by: Brielle Vick M.D. Radiologist
== END | disposition home or self-care (01) ==
LOC: RADMAMWWP 08:33
PROVIDERS: ATTEND Obstetrics & Gynecology
DX: Z12.31 Encounter for screening mammogram for malignant neoplasm of breast (principal); Z80.3 Family history of malignant neoplasm of breast
CPT/HCPCS: 77063; 77067

== ENCOUNTER → 2023-10-11 | Outpatient (CLI) | payer BC ==
--- NOTE | 2023-10-11 13:22 | MM ---
Reason for Exam: Additional evaluation requested from abnormal screening. Last screening mammogram was performed less than 1 month ago. Patient History: Menarche at age 16. First Full-Term at age 25. Hormonal Contraceptives, starting at age 27 for 12 years, 6 months. Maternal aunt had breast cancer. Risk Values: Tamela 5 year model risk: 0.7%. NCI Lifetime model risk: 10.0%. Prior Study Comparison: 10/30/2019 Bilateral Screening Mammogram, [facility]. 12/25/2020 Bilateral Screening Mammogram, [facility]. 10/06/2023 Bilateral MG 3D screening mammo w/cad, [facility]. Tissue Density: Left: The breast tissue is extremely dense which could obscure a lesion on mammography. Findings: Analyzed By CAD. The asymmetric density far posterior inferior left MLO view completely disperses on additional views. Findings compatible with superimposition shadow. Overall Assessment: Benign, BI-RAD 2 Management: Screening Mammogram of both breasts in 1 year. . Results were given to the patient verbally at the time of exam. Patient should continue monthly self-breast exams. A clinical breast exam by your physician is recommended on an annual basis. This exam should not preclude additional follow-up of suspicious palpable abnormalities. Note on Tamela scores and lifetime risk: 1. A Tamela score greater than 3% is considered moderate risk. If this is the case, consider specialist referral to assess eligibility for a risk reducing agent. 2. If overall lifetime risk for the development of breast cancer is 20% or higher, the patient may qualify for future screening with alternating mammogram and breast MRI. Electronically signed and approved by: Brielle Vick M.D. Radiologist
== END | disposition home or self-care (01) ==
LOC: RADMAMWWP 12:59
PROVIDERS: ATTEND Obstetrics & Gynecology
DX: R92.8 Other abnormal and inconclusive findings on diagnostic imaging of breast (principal); Z80.3 Family history of malignant neoplasm of breast
CPT/HCPCS: 77061; 77065